=== PATIENT | male | born 1990 | race Caucasian/White ===

== ENCOUNTER 2018-07-07 20:59 | Emergency (ER) | payer OTHER ==
--- NOTE | 2018-07-07 21:18 | PDOC ---
Rapid Medical Evaluation Chief Complaint: Asthma Time Seen by Provider: 07/07/18 21:16 Medical Evaluation: Allergies Allergy/AdvReac Type Severity Reaction Status Date / Time No Known Allergies Allergy Verified 04/01/15 00:19 07/07/18 21:16 I have performed a brief in-person evaluation of this patient. The patient presents with a chief complaint of: shortness of breath and wheezing. Reports cold symptoms and feverish. Pertinent physical exam findings are: nad clear lungs bilaterally heart s1s2 I have ordered the following: The patient will proceed to the ED for further evaluation.
[2018-07-07 21:20] VITALS: BP 136/76; PULSE 110; TEMP 98.1; BMI 21.5
--- NOTE | 2018-07-08 00:07 | PDOC ---
History of Present Illness - General Chief Complaint: Asthma Stated Complaint: ASTHMA Time Seen by Provider: 07/07/18 21:16 History Source: Patient Exam Limitations: No Limitations - History of Present Illness Initial Comments: 07/08/18 00:11 Attempted to see this patient in [facility] He was not present for assessment Will continue to look for him Past History - Past Medical History Allergies/Adverse Reactions: Allergies Allergy/AdvReac Type Severity Reaction Status Date / Time No Known Allergies Allergy Verified 07/07/18 22:09 Home Medications: Ambulatory Orders NK [No Known Home Medication] 07/07/18 Asthma: Yes - Immunization History Immunization Up to Date: Yes - Suicide/Smoking/Psychosocial Hx Smoking History: Never smoked Have you smoked in the past 12 months: No Information on smoking cessation initiated: No Hx Alcohol Use: No Drug/Substance Use Hx: No Substance Use Type: Marijuana Hx Substance Use Treatment: No *Physical Exam - Vital Signs Last Vital Signs Temp Pulse Resp BP Pulse Ox 98.1 F 110 H 20 136/76 97 07/07/18 21:16 07/07/18 21:16 07/07/18 21:16 07/07/18 21:16 07/07/18 21:16 *DC/Admit/Observation/Transfer Diagnosis at time of Disposition: Asthma Qualifiers: Asthma severity: unspecified severity Asthma persistence: unspecified Asthma complication type: unspecified Qualified Code(s): J45.909 - Unspecified asthma, uncomplicated - Discharge Dispostion Disposition: ELOPED Decision to Admit order: No - Referrals - Patient Instructions - Post Discharge Activity
== END 2018-07-08 02:29 | disposition left against medical advice (07) ==
LOC: JER 20:59 → JERFT 20:59 → JER 07-08 02:29
DX: R06.02 Shortness of breath (principal); R06.2 Wheezing
CPT/HCPCS: 99281-25

== ENCOUNTER 2019-09-03 22:25 | Emergency (ER) | payer OTHER ==
[2019-09-03 22:29] VITALS: BP 139/73; PULSE 74; TEMP 97.9; BMI 21.5
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
[2019-09-03] MEDS ORDERED: FAMOTIDINE 20 MG/50 ML IVPB 20 MG/50 ML MG IVPB ONE (23:06)
[2019-09-03] MEDS ORDERED: ONDANSETRON 4 MG/2 ML VIAL IVPUSH ONE (23:06)
[2019-09-03] MEDS ORDERED: SODIUM CHLORIDE 1,000 ML IV STA (23:06)
[2019-09-03] MEDS ORDERED: MAG HYDROX/AL HYDROX/SIMETH 30 ML UNIT-DOSE CUP PO ONE (23:06)
[2019-09-03] MEDS ORDERED: ACETAMINOPHEN 1000 MG/100 ML VIAL (NON FORMULARY) IVPB ONE (23:27)
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
[2019-09-03 23:43] LABS: BASO % 0.9 % (0-2.0); EOS % 0.1 % (0-4.5); HEMATOCRIT 43.1 % (35.4-49); HEMOGLOBIN 14.9 GM/dL (11.7-16.9); LYMPH % 20.5 % (8-40); MCH 32.3 pg (25.7-33.7); MCHC 34.7 g/dl (32.0-35.9); MEAN CELL VOLUME 93.1 fl (80-96); MEAN PLT VOLUME 9.8 fl (7.5-11.1); MONO % 5.2 % (3.8-10.2); NEUT % 73.3 % (42.8-82.8); PLATELET COUNT 170 K/MM3 (134-434); RBC 4.63 M/mm3 (4.00-5.60); RDW 12.1 % (11.9-15.9); WHITE BLOOD COUNT 7.1 K/mm3 (4.0-10.0)
[2019-09-03] MEDS ORDERED: ACETAMINOPHEN INJECTION 100 ML IVPB ONE (23:53)
[2019-09-04 00:18] LABS: ALBUMIN 4.5 g/dl (3.4-5.0); BILIRUBIN,TOTAL 0.8 mg/dL (0.2-1); BLOOD UREA NITROGEN 11.6 mg/dL (7-18); CALCIUM 9.3 mg/dL (8.5-10.1); CREATININE 0.9 mg/dL (0.55-1.3); POTASSIUM 4.2 mmol/L (3.5-5.1)
--- NOTE | 2019-09-04 10:16 | EKG ---
Test Reason : Blood Pressure : / mmHG Vent. Rate : 059 BPM Atrial Rate : 059 BPM P-R Int : 134 ms QRS Dur : 098 ms QT Int : 400 ms P-R-T Axes : 021 052 051 degrees QTc Int : 396 ms SINUS BRADYCARDIA EARLY REPOLARIZATION OTHERWISE NORMAL ECG WHEN COMPARED WITH ECG OF 24-DEC-2008 05:26, NO SIGNIFICANT CHANGE WAS FOUND Confirmed by CHRISTIANE BAUTISTA MD ([id number]) on 09/04/2019 10:15:50 AM Referred By: Confirmed By:CHRISTIANE BAUTISTA MD
== END 2019-09-04 03:02 | disposition home or self-care (01) ==
LOC: JER 22:25
PROC: 3E033NZ Introduction of Analgesics, Hypnotics, Sedatives into Peripheral Vein, Percutaneous Approach (ICD-10-PCS; principal; 2019-09-03)
PROC: 3E0337Z Introduction of Electrolytic and Water Balance Substance into Peripheral Vein, Percutaneous Approach (ICD-10-PCS; 2019-09-03)
DX: R10.84 Generalized abdominal pain (principal); W50.0XXA Accidental hit or strike by another person, initial encounter; Y93.89 Activity, other specified; Y92.89 Other specified places as the place of occurrence of the external cause
CPT/HCPCS: 36415; 73130-TC-LT-FY; 74177-TC; 80053; 83690; 85025; 93005; 93010; 99283-25; J0131; J7030

== ENCOUNTER 2021-03-30 19:37 | Emergency (ER) | payer OTHER ==
[2021-03-30 19:51] VITALS: TEMP 98.3
[2021-03-30] MEDS ORDERED: SODIUM CHLORIDE 0.9% 500 ML INFUS.BAG IV ONE (20:21)
[2021-03-30 21:28] LABS: BASO % 0.7 % (0-2.0); EOS % 0.3 % (0-4.5); HEMATOCRIT 46.6 % (35.4-49); HEMOGLOBIN 15.8 GM/dL (11.7-16.9); MEAN CELL VOLUME 91.1 fl (80-96); MONO % 6.7 % (3.8-10.2); NEUT % 67.3 % (42.8-82.8); RBC 5.11 M/mm3 (4.00-5.60); RDW 12.8 % (11.9-15.9); WHITE BLOOD COUNT 7.1 K/mm3 (4.0-10.0)
[2021-03-30 21:45] LABS: CHLORIDE 108 mmol/L (98-107); SODIUM 141 mmol/L (136-145)
[2021-03-30 21:47] LABS: GLUCOSE,RANDOM 81 mg/dL (74-106)
[2021-03-30 21:48] LABS: ALBUMIN 4.6 g/dl (3.4-5.0); ANION GAP 8 MMOL/L (8-16); BLOOD UREA NITROGEN 17.8 mg/dL (7-18); CALCIUM 9.5 mg/dL (8.5-10.1); CO2 25 mmol/L (21-32)
[2021-03-30 21:51] LABS: SGOT/AST 14 U/L (15-37); SGPT/ALT 15 U/L (13-61)
[2021-03-30 21:53] LABS: BILIRUBIN,TOTAL 1.3 mg/dL (0.2-1); TOT PROT 8.1 g/dl (6.4-8.2)
[2021-03-30 21:54] LABS: ALK PHOS 66 U/L (45-117)
[2021-03-30 22:05] LABS: PLATELET ESTIMATE DECREASED
[2021-03-30] MEDS ORDERED: ALBUTEROL SO4 2.5/IPRATROPIUM 0.5 INH SOL 3 ML VIAL.NEB. NEB ONE ×2 (22:10→22:15)
[2021-03-30] MEDS ORDERED: ACETAMINOPHEN 325 MG TABLET (FP) ONE (22:15)
[2021-03-30] MEDS ORDERED: ACETAMINOPHEN 325 MG TABLET (FP) PO ONE (22:20)
[2021-03-30 23:21] VITALS: BP 116/62; PULSE 70
== END 2021-03-30 23:21 | disposition home or self-care (01) ==
LOC: JER 19:37
PROC: 3E0F7GC Introduction of Other Therapeutic Substance into Respiratory Tract, Via Natural or Artificial Opening (ICD-10-PCS; principal; 2021-03-30)
DX: R07.9 Chest pain, unspecified (principal)
CPT/HCPCS: 36415; 71046-TC-FY; 80053; 82550; 84484; 85025; 93005; 93010; 99285-25; C9803; U0003; U0005

== ENCOUNTER 2021-04-02 12:27 | Emergency (ER) | payer OTHER ==
[2021-04-02 12:38] VITALS: BP 120/74; PULSE 69; TEMP 98.6; BMI 19.5
== END 2021-04-02 15:13 | disposition home or self-care (01) ==
LOC: JER 12:27
DX: F32.9 Major depressive disorder, single episode, unspecified (principal)
CPT/HCPCS: 99281-25

== ENCOUNTER 2021-11-30 12:17 | Emergency (ER) | payer OTHER ==
[2021-11-30 12:32] VITALS: BP 137/67; PULSE 111; TEMP 98.3; BMI 24.4
[2021-11-30] MEDS ORDERED: ALBUTEROL SO4 2.5/IPRATROPIUM 0.5 INH SOL 3 ML VIAL.NEB. NEB ONE ×2 (13:31→13:45)
[2021-11-30 14:52] LABS: EOS % 1.4 % (0-4.5); HEMATOCRIT 40.5 % (35.4-49); HEMOGLOBIN 14.1 GM/dL (11.7-16.9); MCH 31.3 pg (25.7-33.7); MCHC 34.9 g/dl (32.0-35.9); MEAN CELL VOLUME 89.5 fl (80-96); MEAN PLT VOLUME 8.9 fl (7.5-11.1); MONO % 9.4 % (3.8-10.2); NEUT % 63.2 % (42.8-82.8); PLATELET COUNT 178 10^3/uL (134-434); RBC 4.53 M/mm3 (4.00-5.60); RDW 12.7 % (11.9-15.9); WHITE BLOOD COUNT 5.4 K/mm3 (4.0-10.0)
[2021-11-30 15:14] LABS: ALBUMIN 4.1 g/dl (3.4-5.0); BLOOD UREA NITROGEN 10.5 mg/dL (7-18); CALCIUM 9.2 mg/dL (8.5-10.1)
[2021-11-30 15:17] LABS: CREATININE 0.8 mg/dL (0.55-1.3)
[2021-11-30 15:19] LABS: BILIRUBIN,TOTAL 0.5 mg/dL (0.2-1)
[2021-12-01 13:07] LABS: SARS-CoV-2 NAA Not Detected (Not Detected)
== END 2021-11-30 18:08 | disposition home or self-care (01) ==
LOC: JER 12:17
PROC: 3E0F7GC Introduction of Other Therapeutic Substance into Respiratory Tract, Via Natural or Artificial Opening (ICD-10-PCS; principal; 2021-11-30)
DX: J18.8 Other pneumonia, unspecified organism (principal)
CPT/HCPCS: 36415; 71046-TC-FY; 80053; 84484; 85025; 93005; 93010; 99285-25; C9803; U0003; U0005